=== PATIENT | male | born 1960 | race Caucasian/White ===

== ENCOUNTER 2016-11-24 18:19 | Inpatient (IN) | payer OTHER ==
[~2016-11-24] VITALS: Ht 175.3 cm; Wt 77.6 kg
--- NOTE | ~2016-11-24 | DS ---
Discharge Summary [facility] [address] [place]. [address] NAME: MARY JEFF : 56 STATUS : DIS IN PAT#: [id number] AGE: 56 ADM/REG DATE : 11/24/16 MR#: [id number] REPORT SERV DATE: 12/02/16 DICTATED BY: EFE DEUTSCH DATE: 12/01/16 REPORT STATUS : Draft TRANSCRIBED BY: MODLissette DATE: 12/01/16 ADMISSION DATE: 11/24/2016 DISCHARGE DATE: 11/30/2016 DISCHARGE DIAGNOSES: 1. 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 2. Common bile duct obstruction. CASE HISTORY: This patient developed jaundice and itching. He did have a history of pancreatitis now x3. He had a CT that showed a 2 cm pancreatic head mass. He had a total bilirubin of 14. On exam, he was grossly icteric. Vital signs were stable. HOSPITAL COURSE AND ASSESSMENT: The patient underwent CT, again which showed prominent intra and extrahepatic ducts. Common duct was 17 mm. There was a hypoenhancing lesion in the inferior aspect of the pancreatic head. There was no evidence of tumor growing around the vena cava or superior mesenteric vein or portal vein. The patient was covered with antibiotics. ERCP was done on 11/27/2016. There was a duodenal mass present around the ampullary area, was ulcerated involving ampulla. Pancreatic duct was cannulated and was normal. Common bile duct could not be accessed. Biopsies were taken. For that reason, Interventional Radiology was consulted to place an internal and external drain with good function. The patient immediately got relief of his nausea and itching. PLAN: He was sent home with internal and external drainage. 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 Also the biopsies may have showed some areas of adenoma which suggested a primary duodenal lesion with some malignancy develop in the background of an adenoma. This is significantly against this being a primary pancreatic cancer. /FARNAZ Efe Deutsch M.D. / [id number] CC: Gladys Escoto M.D.
--- NOTE | ~2016-11-24 | CN ---
Consultation Report [facility] [address] [place]. [address] NAME: MARY JEFF : 56 STATUS : ADM IN PAT#: [id number] AGE: 56 ADM/REG DATE : 11/24/16 MR#: [id number] REPORT SERV DATE: 11/27/16 DICTATED BY: MEGAN JAMIL DATE: 11/27/16 REPORT STATUS : Draft TRANSCRIBED BY: MODL DATE: 11/27/16 CONSULTATION NOTE DATE OF CONSULTATION: 11/25/2016 SERVICE: General Surgery. REASON FOR CONSULT: Jaundice and 2 cm pancreatic head mass. HISTORY OF PRESENT ILLNESS: This is a 56-year-old male, with a history of pancreatitis x3. He is now presenting with three days of worsening jaundice. The patient states that his stools have been "jayda-colored" and his urine has been dark for approximately one week. He denies any pain or nausea, but did have fever and chills approximately three weeks ago. He does also endorse vague chronic back pain that he attributes to his previous episode of the pancreatitis. The CT shows a 2 cm pancreatic head mass and we do not currently have those images available. The patient came with an imaging CT that we are currently trying to upload to the PACS imaging system. He does also have elevated liver function tests, with a total bilirubin of 14. Alkaline phosphatase, ALT, AST, and CA-19-9 are all elevated, his CA-19-[address] Price has already consulted IR for biopsy and biliary drainage at this time. PAST MEDICAL HISTORY: Pancreatitis. REVIEW OF SYSTEMS: In addition to those noted in the HPI, pertinent positives also includes malaise. All other systems are negative on 10-point review. PAST SURGICAL HISTORY: Cholecystectomy. FAMILY HISTORY: The patient denies any knowledge of cancers, biliary, or hepatic disease in his family. MEDICATIONS: Several multivitamins, Tylenol, and MiraLAX. ALLERGIES: NO KNOWN DRUG ALLERGIES. SOCIAL HISTORY: Denies alcohol, tobacco, or illicit drug use. LABORATORY DATA: White count 5.7, hemoglobin 13.7, hematocrit 40.3, platelets a 138. BMP is within normal limits. Total bilirubin is 14, alkaline phosphatase is 402, ALT 219, AST 89, CA-19-9 is 440. PHYSICAL EXAMINATION: VITAL SIGNS: Temperature 97.9, pulse 66, respiration 18, blood pressure 102/59, O2 Consultation Report [address] [place]. [address] NAME: MARY JEFF : 56 STATUS : ADM IN PAT#: [id number] AGE: 56 ADM/REG DATE : 11/24/16 MR#: [id number] REPORT SERV DATE: 11/27/16 DICTATED BY: MEGAN JAMIL DATE: 11/27/16 REPORT STATUS : Draft TRANSCRIBED BY: MODL DATE: 11/27/16 saturation is 97% on room air. GENERAL: Alert and oriented x3. In no acute distress. The patient is noticeably jaundiced. HEENT: Normocephalic and atraumatic. Extraocular muscles are intact. Pupils equal, round, reactive to light. The patient does have scleral icterus. CARDIOVASCULAR: Regular rate and rhythm. LUNGS: Clear to auscultation bilaterally. ABDOMEN: Soft, nondistended, nontender with positive bowel sounds. EXTREMITIES: Moves all extremities well and has 2+ palpable pulses bilaterally. ASSESSMENT: This is a 56-year-old male, with a pancreatic head mass, and obstructive jaundice, with markedly elevated LFTs, and elevated CA-19-9. PLAN: 1. CT-guided biopsy and biliary drainage have been ordered for IR tomorrow. 2. We will follow up path report and follow along. DICTATED BY: Jo-Ann Beal MD VZ/FARNAZ Megan Jamil MD / [id number] CC: MD Eloy Marin M.D.
--- NOTE | ~2016-11-24 | HP ---
History And Physical [address] [place]. [address] NAME: MARY JEFF : 56 STATUS : ADM IN [facility]#: [id number] AGE: 56 ADM/REG DATE : 11/24/16 MR#: [id number] REPORT SERV DATE: 11/25/16 DICTATED BY: LUAN DAVIES DATE: 11/25/16 REPORT STATUS : Draft TRANSCRIBED BY: FARNAZ DATE: 11/25/16 DATE OF ADMISSION: 11/24/2016 LOCATION: Bed 533. HISTORY OF PRESENT ILLNESS: This gentleman is being admitted with fever and jaundice. This 56-year-old gentleman was in good general health. He underwent cholecystectomy about nine years ago, uncomplicated. Symptoms developed about a month ago. He developed a dental abscess which was treated with oral antibiotics. Since that time, he has noted intermittent fever as well as back pain. In addition, he has noted dark urine and light stools. He has had a vague sensation of epigastric pain and a ten-pound weight loss through food avoidance. He has had mild nausea but no vomiting. He has occasional itching. Otherwise, feels generally well. REVIEW OF SYSTEMS: General review of systems is otherwise negative. PHYSICAL EXAMINATION: VITAL SIGNS: Afebrile with normal vital signs. HEENT: Head eyes, ears, nose, and throat show mild jaundice. NECK: Supple. CHEST: Clear. CARDIAC: Regular rhythm. ABDOMEN: Soft and nontender. LABORATORY DATA: Initial lab work has shown a normal CBC. Total bilirubin 14, alkaline phosphatase 402, AST 89, ALT 219. CBC is normal. CT scan as an outpatient had shown a 2 cm mass in the head of the pancreas with questionable dilatation of the pancreatic and bile ducts. IMPRESSION: 1. Chills, fever, and abdominal pain. 2. Jaundice. 3. Abnormal x-ray, pancreatic mass. PLAN: Begin with CT-directed biopsy and stent placement. We will also consult Dr. Jamil of the Surgical Service for his input. SAVI Luan Davies M.D. History And Physical [address]. [address] NAME: MARY JEFF : 56 STATUS : ADM IN PAT#: [id number] AGE: 56 ADM/REG DATE : 11/24/16 MR#: [id number] REPORT SERV DATE: 11/25/16 DICTATED BY: LUAN DAVIES DATE: 11/25/16 REPORT STATUS : Draft TRANSCRIBED BY: MODL DATE: 11/25/16 / [id number] CC: Gladys Escoto M.D.
--- NOTE | ~2016-11-24 | EGD ---
EGD REPORT [facility] [address] [address] NAME: MARY HESTER : 56 STATUS : ADM IN PAT#: [id number] AGE: 56 ADM/REG DATE : 11/24/16 MR#: [id number] REPORT SERV DATE: 11/28/16 DICTATED BY: EFE DEUTSCH DATE: 11/28/16 REPORT STATUS : Draft TRANSCRIBED BY: [facility] DATE: 11/28/16 End[facility] Center Patient Name: Mary Hester Date of : 1960 Attending MD: EFE DEUTSCH MD Procedure Date No Time: 11/28/2016 Procedure: ERCP Indications: Jaundice Referring MD: Eloy Davis Medicines: General Anesthesia Complications: No immediate complications. Procedure: Pre-Anesthesia Assessment: - ASA Grade Assessment: III - A patient with severe systemic disease. After obtaining informed consent, the scope was passed under direct vision. Throughout the procedure, the patient's blood pressure, pulse, and oxygen saturations were monitored continuously. The Endoscope was introduced through the mouth, and advanced to the duodenum and used to inject contrast into the ventral pancreatic duct. The ERCP was accomplished without difficulty. The patient tolerated the procedure well. Findings: The scope was passed through the upper GI tract without discovering UGI findings. The upper GI tract was traversed under direct vision without detailed examination. mass involving major papilla with ulceration extending to the duodenumaround the papilla. exudate on the papilla A medium-sized infiltrative mass measuring five mm in diameter was found at the major papilla. The ventral pancreatic duct was deeply cannulated with the short-nosed traction autotome. Contrast was injected. I personally interpreted the pancreatic duct images. There was brisk flow of contrast through the ducts. Ductal flow of contrast was adequate. Image quality was excellent. The ventral pancreatic duct in the head of the pancreas and pancreatic duct in the body of the pancreas were normal. The entire opacified area was normal. Biopsies were taken through the ERCP scope with the cold forceps for histology. Impression: - The major papilla appeared to have a mass. Procedure Code(s): --- Professional --- 26610, Endoscopic retrograde cholangiopancreatography (ERCP); with biopsy, single or multiple Diagnosis Code(s): --- Professional --- EGD REPORT [address] [address] NAME: MARY HESTER : 56 STATUS : ADM IN [facility]#: [id number] AGE: 56 ADM/REG DATE : 11/24/16 MR#: [id number] REPORT SERV DATE: 11/28/16 DICTATED BY: EFE DEUTSCH. DATE: 11/28/16 REPORT STATUS : Draft TRANSCRIBED BY: [employer] DATE: 11/28/16 K83.9, Disease of biliary tract, unspecified R17, Unspecified jaundice CPT copyright 2013 [employer]. All rights reserved. The codes documented in this report are preliminary and upon supervisor kennel review may be revised to meet current compliance requirements. Efe Deutsch MD EFE DEUTSCH MD 11/28/2016 2:46 PM This report has been signed electronically. Number of Addenda: 0 Note Initiated On: 11/28/2016 1:04 PM Scope Withdrawal Time 0 hours 0 minutes [address] [place] [address] [id number]
--- NOTE | ~2016-11-24 | OP ---
Record Of Operation [facility] [address] [address] NAME: MARY JEFF : 56 STATUS : ADM IN [facility]#: [id number] AGE: 56 ADM/REG DATE : 11/24/16 MR#: [id number] REPORT SERV DATE: 11/29/16 DICTATED BY: EFE DEUTSCH DATE: 11/28/16 REPORT STATUS : Draft TRANSCRIBED BY: MODL DATE: 11/28/16 DATE OF PROCEDURE: PROCEDURE: Endoscopic retrograde cholangiopancreatography and biopsy. INDICATION: Patient with obstructive jaundice. SEDATION: General. FINDINGS: The Olympus side-viewing endoscope was passed in the major duodenal papilla. It was distinctly abnormal with an ulcerated mass around the papilla and extending in the periampullary duodenal wall. Using the sphincterotome, the pancreatic duct was cannulated. I did not see any stricture. Attempts to cannulate the common bile duct were unsuccessful. Biopsies were taken. IMPRESSION: Mass involving the major duodenal papilla in the peripapillary area. May be a primary ampullary mass or even duodenal. MG/FARNAZ Efe Deutsch M.D. / [id number] CC: Gladys Escoto M.D.
[2016-11-24] MEDS ORDERED: ENZYMES (21:03)
[2016-11-24] MEDS ORDERED: CENTRUM PO (21:23)
[2016-11-24] MEDS ORDERED: ACET500CAP PO (21:23)
[2016-11-24] MEDS ORDERED: MIRALAX POWDER1 PKT PO (21:23)
[2016-11-24] MEDS ORDERED: DIGESTIVE ENZYME PO (21:23)
[2016-11-25 06:35] LABS: BASOPHILS 0.4 %; BASOPHILS ABSOLUTE 0.02 10/3/uL (0.0-0.16); EOSINOPHILS 2.5 %; EOSINOPHILS ABSOLUTE 0.14 10/3/uL (0.0-0.53); HEMATOCRIT 40.3 % (40.0-51.0); HEMOGLOBIN 13.7 g/dL (13.6-17.8); IMMATURE GRANULOCYTES 0.4 %; IMMATURE GRANULOCYTES ABSOLUTE 0.02 10/3/uL (0.0-0.11); LYMPHOCYTES 27.6 %; LYMPHOCYTES ABSOLUTE 1.57 10/3/uL (0.67-4.30); MANUAL DIFF NO %; MEAN CORPUSCULAR HEMOGLOB 27.4 pg (26.0-34.0); MEAN CORPUSCULAR VOLUME 80.6 fL (80-100); MEAN PLATELET VOLUME 11.5 fL (9.2-13.0); MONOCYTES 10.5 %; NEUTROPHILS 58.6 %; NEUTROPHILS ABSOLUTE 3.34 10/3/uL (2.02-8.40); PLATELET COUNT 338 10/3/uL (150-400); RBC DISTRIBUTION WIDTH 15.1 % (12.0-16.0); WHITE BLOOD CELLS 5.7 10/3/uL (4.5-10.5)
[2016-11-25 06:58] LABS: A/G RATIO 0.8 (0.7-1.9); ALBUMIN 2.8 G/DL (3.5-5.0); ALKALINE PHOSPHATASE 402 U/L (45-117); BUN (BLOOD UREA NITROGEN) 8 MG/DL (6-23); CALCIUM, SERUM 8.6 MG/DL (8.5-10.4); CHLORIDE, SERUM 103 MMOL/L (96-112); CO2 (CARBON DIOXIDE) 28 MMOL/L (24-34); GFR AFRICAN AMERICAN 114 ML/MIN (>=60); GFR NON AFRICAN AMERICAN 98 ML/MIN (>=60); GLOBULIN 3.5 G/DL (2.5-4.1); GLUCOSE, SERUM 89 MG/DL (60-99); SGPT(ALT) 219 U/L (5-65); SODIUM, SERUM 134 MMOL/L (135-148); TOTAL PROTEIN 6.3 G/DL (6.0-8.5)
[2016-11-25 07:00] LABS: SGOT(AST) 89 U/L (5-40)
[2016-11-25 13:48] LABS: CA-19-9 440.1 U/ML (< 37.0)
[2016-11-26 05:54] LABS: BASOPHILS 0.8 %; BASOPHILS ABSOLUTE 0.04 10/3/uL (0.0-0.16); EOSINOPHILS ABSOLUTE 0.16 10/3/uL (0.0-0.53); HEMATOCRIT 39.1 % (40.0-51.0); HEMOGLOBIN 13.3 g/dL (13.6-17.8); IMMATURE GRANULOCYTES 0.4 %; IMMATURE GRANULOCYTES ABSOLUTE 0.02 10/3/uL (0.0-0.11); LYMPHOCYTES 27.5 %; LYMPHOCYTES ABSOLUTE 1.46 10/3/uL (0.67-4.30); MEAN CORPUSCULAR HEMOGLOB 27.3 pg (26.0-34.0); MEAN CORPUSCULAR VOLUME 80.1 fL (80-100); MEAN PLATELET VOLUME 11.2 fL (9.2-13.0); MONOCYTES 8.5 %; MONOCYTES ABSOLUTE 0.45 10/3/uL (0.21-1.20); NEUTROPHILS 59.8 %; NEUTROPHILS ABSOLUTE 3.17 10/3/uL (2.02-8.40); PLATELET COUNT 311 10/3/uL (150-400); RBC DISTRIBUTION WIDTH 15.3 % (12.0-16.0); RED CELL COUNT 4.88 10/6/uL (4.7-6.1); WHITE BLOOD CELLS 5.3 10/3/uL (4.5-10.5)
[2016-11-26 05:58] LABS: MANUAL DIFF NO %
[2016-11-26 06:04] LABS: INTERNATIONAL NORMAL RATI 0.9 UNITS (-); PARTIAL THROMBO TIME 27.8 SEC (22.5-37.2); PROTIME (NOT ORD) 12.2 SEC (12.0-14.5)
[2016-11-26 08:38] LABS: BUN (BLOOD UREA NITROGEN) 8 MG/DL (6-23); CALCIUM, SERUM 8.7 MG/DL (8.5-10.4); CHLORIDE, SERUM 103 MMOL/L (96-112); CO2 (CARBON DIOXIDE) 27 MMOL/L (24-34); GFR AFRICAN AMERICAN 109 ML/MIN (>=60); GFR NON AFRICAN AMERICAN 94 ML/MIN (>=60); GLUCOSE, SERUM 95 MG/DL (60-99); POTASSIUM, SERUM 4.1 MMOL/L (3.5-5.3); SODIUM, SERUM 136 MMOL/L (135-148)
[2016-11-27 04:34] LABS: BASOPHILS 0.5 %; BASOPHILS ABSOLUTE 0.03 10/3/uL (0.0-0.16); EOSINOPHILS 1.9 %; EOSINOPHILS ABSOLUTE 0.11 10/3/uL (0.0-0.53); HEMATOCRIT 40.2 % (40.0-51.0); HEMOGLOBIN 13.9 g/dL (13.6-17.8); IMMATURE GRANULOCYTES 0.3 %; IMMATURE GRANULOCYTES ABSOLUTE 0.02 10/3/uL (0.0-0.11); LYMPHOCYTES 27.2 %; LYMPHOCYTES ABSOLUTE 1.61 10/3/uL (0.67-4.30); MANUAL DIFF NO %; MEAN CORPUS HGB CONC 34.6 g/dL (32.0-36.0); MEAN CORPUSCULAR HEMOGLOB 28.1 pg (26.0-34.0); MEAN CORPUSCULAR VOLUME 81.2 fL (80-100); MEAN PLATELET VOLUME 11.8 fL (9.2-13.0); MONOCYTES 9.4 %; MONOCYTES ABSOLUTE 0.56 10/3/uL (0.21-1.20); NEUTROPHILS 60.7 %; PLATELET COUNT 315 10/3/uL (150-400); RBC DISTRIBUTION WIDTH 15.8 % (12.0-16.0); RED CELL COUNT 4.95 10/6/uL (4.7-6.1); WHITE BLOOD CELLS 5.9 10/3/uL (4.5-10.5)
[2016-11-27 04:40] LABS: INTERNATIONAL NORMAL RATI 0.9 UNITS (-); PROTIME (NOT ORD) 12.2 SEC (12.0-14.5)
[2016-11-27 04:58] LABS: A/G RATIO 0.8 (0.7-1.9); ALBUMIN 2.7 G/DL (3.5-5.0); BUN (BLOOD UREA NITROGEN) 6 MG/DL (6-23); CALCIUM, SERUM 8.8 MG/DL (8.5-10.4); CHLORIDE, SERUM 103 MMOL/L (96-112); CO2 (CARBON DIOXIDE) 26 MMOL/L (24-34); CREATININE 0.91 MG/DL (0.70-1.30); GFR AFRICAN AMERICAN 107 ML/MIN (>=60); GFR NON AFRICAN AMERICAN 93 ML/MIN (>=60); GLOBULIN 3.6 G/DL (2.5-4.1); GLUCOSE, SERUM 91 MG/DL (60-99); POTASSIUM, SERUM 4.1 MMOL/L (3.5-5.3); PREALBUMIN 14.8 MG/DL (17.0-43.0); SGPT(ALT) 174 U/L (5-65); SODIUM, SERUM 136 MMOL/L (135-148); TOTAL PROTEIN 6.3 G/DL (6.0-8.5)
[2016-11-27 04:59] LABS: ALKALINE PHOSPHATASE 361 U/L (45-117); SGOT(AST) 67 U/L (5-40); TOTAL BILIRUBIN 15.2 MG/DL (0-1.2)
[2016-11-29 09:17] LABS: PLATELET COUNT 321 10/3/uL (150-400)
[2016-11-29 09:25] LABS: BASOPHILS 0.3 %; BASOPHILS ABSOLUTE 0.02 10/3/uL (0.0-0.16); EOSINOPHILS 1.5 %; HEMATOCRIT 38.1 % (40.0-51.0); HEMOGLOBIN 13.1 g/dL (13.6-17.8); IMMATURE GRANULOCYTES 0.5 %; IMMATURE GRANULOCYTES ABSOLUTE 0.03 10/3/uL (0.0-0.11); INTERNATIONAL NORMAL RATI 0.9 UNITS (-); LYMPHOCYTES ABSOLUTE 1.31 10/3/uL (0.67-4.30); MEAN CORPUS HGB CONC 34.4 g/dL (32.0-36.0); MEAN CORPUSCULAR HEMOGLOB 27.8 pg (26.0-34.0); MEAN CORPUSCULAR VOLUME 80.7 fL (80-100); MEAN PLATELET VOLUME 11.3 fL (9.2-13.0); MONOCYTES 8.2 %; MONOCYTES ABSOLUTE 0.54 10/3/uL (0.21-1.20); NEUTROPHILS 69.5 %; NEUTROPHILS ABSOLUTE 4.56 10/3/uL (2.02-8.40); PROTIME (NOT ORD) 12.4 SEC (12.0-14.5); RBC DISTRIBUTION WIDTH 16.1 % (12.0-16.0); RED CELL COUNT 4.72 10/6/uL (4.7-6.1); WHITE BLOOD CELLS 6.6 10/3/uL (4.5-10.5)
[2016-11-29 09:26] LABS: MANUAL DIFF NO %
[2016-11-29 09:44] LABS: ALBUMIN 2.7 G/DL (3.5-5.0); BUN (BLOOD UREA NITROGEN) 8 MG/DL (6-23); CALCIUM, SERUM 9.1 MG/DL (8.5-10.4); CHLORIDE, SERUM 101 MMOL/L (96-112); CO2 (CARBON DIOXIDE) 28 MMOL/L (24-34); CREATININE 0.94 MG/DL (0.70-1.30); GFR AFRICAN AMERICAN 103 ML/MIN (>=60); GFR NON AFRICAN AMERICAN 89 ML/MIN (>=60); GLUCOSE, SERUM 98 MG/DL (60-99); POTASSIUM, SERUM 4.2 MMOL/L (3.5-5.3); SGOT(AST) 69 U/L (5-40); SGPT(ALT) 150 U/L (5-65); SODIUM, SERUM 134 MMOL/L (135-148)
[2016-11-29 09:45] LABS: A/G RATIO 0.8 (0.7-1.9); ALKALINE PHOSPHATASE 323 U/L (45-117); GLOBULIN 3.4 G/DL (2.5-4.1); TOTAL BILIRUBIN 19.7 MG/DL (0-1.2); TOTAL PROTEIN 6.1 G/DL (6.0-8.5)
[2016-11-30 19:12] LABS: BUN (BLOOD UREA NITROGEN) 14 MG/DL (6-23); CALCIUM, SERUM 8.6 MG/DL (8.5-10.4); CHLORIDE, SERUM 100 MMOL/L (96-112); CO2 (CARBON DIOXIDE) 32 MMOL/L (24-34); CREATININE 1.07 MG/DL (0.70-1.30); GFR AFRICAN AMERICAN 88 ML/MIN (>=60); GFR NON AFRICAN AMERICAN 76 ML/MIN (>=60); GLUCOSE, SERUM 98 MG/DL (60-99); POTASSIUM, SERUM 3.9 MMOL/L (3.5-5.3); SODIUM, SERUM 137 MMOL/L (135-148)
== END 2016-11-30 20:42 | disposition home or self-care (01) | DRG 435 ==
LOC: ENRESERV → ENRESERVTM → ENRESERVDT → 5SO 19:49
PROVIDERS: Internal Medicine Gastroenterology; Radiology Diagnostic Radiology; Transplant Surgery
PROC: 0FBC8ZX Excision of Ampulla of Vater, Via Natural or Artificial Opening Endoscopic, Diagnostic (ICD-10-PCS; principal; 2016-11-28 12:00)
DX: C24.1 Malignant neoplasm of ampulla of Vater (principal); K83.1 Obstruction of bile duct; Z90.49 Acquired absence of other specified parts of digestive tract; Z98.890 Other specified postprocedural states
CPT/HCPCS: 47534; 71260; 74177; 74330; 80048; 80053; 84134; 85025; 85610; 85730; 86301; 87040; 88305; 93005; A9270-GY; C1729; C1769; C1894; J1200; J1610; J2250; J2405; J2543; J3010; J3480; Q9967